=== PATIENT | male | born 1985 | race African-American/Black ===

== ENCOUNTER 2018-08-10 09:21 | Emergency (ER) | payer OTHER ==
[~2018-08-10] VITALS: Ht 180.3 cm; Wt 90.3 kg
== END 2018-08-10 11:21 | disposition home or self-care (01) ==
LOC: ER 09:21
DX: K59.09 Other constipation (principal); R10.30 Lower abdominal pain, unspecified

== ENCOUNTER 2018-08-17 08:46 | Outpatient (CLI) | payer OTHER | END 2018-08-17 15:57 | disposition home or self-care (01) | LOC: SONOGRAMA 08:46 | DX: K62.5 Hemorrhage of anus and rectum (principal); R19.7 Diarrhea, unspecified; R19.4 Change in bowel habit; R10.30 Lower abdominal pain, unspecified ==